=== PATIENT | female | born 1980 | race Caucasian/White ===

== ENCOUNTER 2016-12-28 20:18 | Inpatient (IN) | payer OTHER ==
[~2016-12-28] VITALS: Ht 152.4 cm; Wt 59.0 kg
--- NOTE | 2016-12-28 20:39 | ED PSYCHIATRIC COMPLAINT ---
See Addendum History of Present Illness General Chief Complaint: General Adult Stated Complaint: "IM HERE TO SEE DR BLOOD" BED FOR DETOX OPI/JOSE Source: patient Exam Limitations: poor historian, physical impairment Vital Signs & Intake/Output Vital Signs & Intake/Output Vital Signs Date Time Temp Pulse Resp B/P Pulse O2 O2 Flow FiO2 Ox Delivery Rate 12/29 1611 98.0 65 18 110/64 98 Room Air / 1507 97.9 80 18 108/60 / 1507 97.9 80 18 108/60 97 Room Air 12/29 1350 98.2 76 18 112/64 98 Room Air / 1116 97.0 74 18 99/57 /09 1108 97.0 74 18 99/57 97 Room Air / 0839 96.7 75 18 108/62 / 0837 96.7 75 18 108/62 / 0830 96.7 75 18 108/62 97 Room Air / 0609 97.1 80 20 90/55 96 Room Air / 0600 98.1 81 18 90/50 /09 0400 96.7 77 18 102/59 03/09 0400 96.7 77 18 102/59 96 Room Air / 0157 96.9 76 18 102/67 03/09 0146 96.9 76 18 102/67 97 Room Air / 0145 96.9 76 18 102/67 /08 2330 96.5 77 18 113/53 03/08 2317 96.5 77 17 113/53 96 Room Air / 2059 96.6 101 20 123/68 96 Room Air ED Intake and Output 12/29 0000 12/28 1200 Intake Total 0 Output Total Balance 0 Intake, Oral 0 Patient 130 lb Weight Allergies Coded Allergies: No Known Allergies (12/28/16) Triage Nurses Notes Reviewed? yes Onset: Abrupt Duration: week(s): Timing: recent history HPI: 12/28/16 This is a 36-year-old female who is pending admission to the [facility] for benzodiazepine and opiate detox. She says that she is using 6 bags of heroin a day, and taking -8 mg of Xanax daily. This is been ongoing for months. She also has a problem with alcohol and uses cocaine and crack when available, she also smokes cigarettes. She denies any medical history. No prior history of seizures. The onset of the symptoms were abrupt, the duration has been months, the severity is significant; as her symptoms required her to come to the emergency department for care (BENNIE BLOOD DO) Reconcile Medications Alprazolam 2 MG TABLET 1 TAB PO 4XDAILY ANXIETY (Reported) (MATT MONTGOMERY,CHANNING Cheng) Past History Travel History Traveled to [place] past 21 day No Medical History Any Pertinent Medical History? see below for history Psychiatric: drug dependency Surgical History Surgical History: non-contributory Family History Hx Contributory? No (BENNIE BLOOD DO) Review of Systems Review of Systems Constitutional: Denies: fever. EENTM: Reports: no symptoms. Respiratory: Reports: no symptoms. Cardiovascular: Reports: no symptoms. GI: Reports: no symptoms. Genitourinary: Reports: no symptoms. Musculoskeletal: Reports: no symptoms. Skin: Reports: no symptoms. Neurological/Psychological: Reports: anxiety. Hematologic/Endocrine: Reports: no symptoms. (BENNIE BLOOD DO) Physical Exam Physical Exam General Appearance: anxious, mild distress, sleepy but responds to questions Head: atraumatic, normal appearance Eyes: Bilateral: normal appearance, PERRL, EOMI. Ears, Nose, Throat: normal pharynx, normal ENT inspection Neck: normal inspection, supple, full range of motion Respiratory: normal breath sounds, chest non-tender Cardiovascular: regular rate/rhythm Gastrointestinal: non-tender Extremities: normal range of motion Neurological/Psychiatric: anxious, sleepy Appearance/Memory/Insight: disheveled Behavoir/Eye Contact/Speech: cooperative Thoughts/Hallucinations: no apparent hallucination Skin: intact, normal color, warm/dry SAD PERSONS SAD PERSONS Response Value Excessive Ethanol/Drug Use? yes 1 Single//? yes 1 Social Support? has support 0 Total 2 SAD PERSONS Done? yes, patient not suicidal (BENNIE BLOOD DO) Progress Differential Diagnosis: drug intoxication, drug overdose, drug withdrawal Plan of Care: Orders Procedure Date/time Status Regular Diet 12/30 B Active PHOSPHORUS 12/30 0600 Active MAGNESIUM 12/30 0600 Active CBC WITHOUT DIFFERENTIAL 12/30 0600 Active BASIC ELECTROLYTES PLUS BUN&CR 12/30 599 Active Regular Diet 12/29 D Complete Heart Healthy Diet 12/29 B Complete Pathway - chart 12/29 175 Active House Staff 12/29 1754 Active Patient Data 12/29 1754 Active Code Status 12/29 1754 Active Admit to inpatient 12/29 1750 Active Code Status 12/29 1545 Complete Patient Data 12/29 1429 Active Saline Lock 12/29 1428 Active Misc Message 12/29 1428 Active ED Holding Orders 12/29 1428 Active Activity/Ambulation 12/29 1428 Active Discharge Patient 12/29 1412 Active CASE MANAGEMENT CONSULT 12/[address] in observation 12/29 0045 Active Patient Data 12/29 0045 Active Vital Signs 12/29 0045 Active Code Status 12/29 0045 Complete VTE Mechanical Prophylaxis 12/29 UNK Active Intake & Output 12/28 2200 Active CIWA 12/28 2133 Active URINE DRUG SCREEN FOR ER ONLY 12/28 2108 Complete ETHANOL 12/28 2108 Complete COMPREHENSIVE METABOLIC PANEL 12/28 2108 Complete CBC WITHOUT DIFFERENTIAL 12/28 2108 Complete Current Medications Sig/Eligio Start time Last Medication Dose Stop Time Status Admin Enoxaparin Sodium 40 MG DAILY 12/30 1000 CAN (Lovenox) Enoxaparin Sodium 40 MG DAILY 12/30 1000 UNVr (Lovenox) Nicotine 14 MG DAILY 12/30 1000 CAN (Nicotine Cq) Methadone HCl 30 MG ONCE ONE 12/30 0800 UNVr (Dolophine) 12/30 08 Baclofen 10 MG TID PRN 12/29 183 UNVr (Lioresal 10MG Tablet) Clonidine 0.1 MG TID PRN 12/29 183 UNVr (Catapres) Dicyclomine HCl 20 MG 4 TIMES/DAY PRN 12/29 183 UNVr (Bentyl) Lorazepam 0 Q1P PRN 12/29 183 UNVr (Ativan) Metoclopramide HCl 10 MG Q6P PRN 12/29 183 UNVr (Reglan) Gabapentin 200 MG TID 12/29 181 UNVr (Neurontin) Lorazepam 2 MG Q6 12/29 181 UNVr (Ativan) Acetaminophen 650 MG Q6P PRN 12/29 1545 AC (Tylenol) Laboratory Tests 12/29/16 0205: Urine Opiates Screen > 4000.00 H, Methadone Screen < 40, Barbiturate Screen < 60, Ur Phencyclidine Scrn < 6.00, Amphetamines Screen 109, U Benzodiazepines Scrn > 800 H, Urine Cocaine Screen 283, Urine Cannabis Screen 12.40 12/28/16 2142: Anion Gap 10, Estimated GFR > 60, BUN/Creatinine Ratio 32.5 H, Glucose 107 H, Calcium 9.5, Total Bilirubin 0.6, AST 36, ALT 59 H, Alkaline Phosphatase 55, Total Protein 6.7, Albumin 3.9, Globulin 2.8, Albumin/Globulin Ratio 1.4, CBC w Diff NO MAN DIFF REQ, RBC 4.15 L, MCV 92.7, MCH 31.8 H, RDW 13.1, MPV 8.6, Gran % 75.5 H, Lymphocytes % 19.2 L, Monocytes % 4.6, Eosinophils % 0.4, Basophils % 0.3, Absolute Granulocytes 7.5 H, Absolute Lymphocytes 1.9, Absolute Monocytes 0.5, Absolute Eosinophils 0, Absolute Basophils 0, PUBS MCHC 34.3, Serum Alcohol < 10.0 Initial ED EKG: none (BENNIE BLOOD DO) Hand-Off Endorsed To: CHANNING GUTIERREZ MD Endorsed Time: 0700 Pending: consult, other (sobriety ?needs detox) (TERRA MONTGOMERY,MARCIE Morocho) Comments: Called has been made to multiple different detox facilities however they do not have any beds. Patient will be admitted here to [facility]. (CHANNING GUTIERREZ MD) Departure Departure Condition: Stable Clinical Impression Primary Impression: Opiate dependence Secondary Impressions: Benzodiazepine abuse Departure Forms: Customer Survey General Discharge Information Comments 12/28/16 12:45 AM THE PATIENT WAS SIGNED OUT TO HENNA ELLISON AT 12:40 AM Observation Note Spoke With: BENNIE BLOOD DO Physician Advisor Notified: BENNIE BLOOD DO Place Patient In: ED Observation Rationale for Observation: My rational for observation is as follows [the patient needs observation for neuro checks every 2-4 hours, serial CIWA scores, likely initiation of benzodiazepine a.m. taper protocol, seizure precautions]. (BENNIE BLOOD DO) Departure Disposition: STILL A PATIENT Admission Note Spoke With: SUKHJINDER LATHAM MD Documentation of Exam: Documentation of any treatments & extenuating circumstances including Concerns Regarding Discharge (functional status, medication knowledge or non-compliance, living conditions, etc.) that warrant an admission rather than observation: [ Patient to be admitted for opiate and benzo detox. Patient will need close monitoring. Patient will require a methadone taper and a benzo taper. Upon discharge the patient has a bed waiting for her at [facility].] (MATT MONTGOMERY,CHANNING Cheng) Critical Care Note Critical Care Note Critical Care Time: 30-74 min (BENNIE BLOOD DO) ED Attending Observation Initial Observation Note: I have seen and personally examined VIC SANTO on 12/29/16 at 0040. I agree with the current emergency department documentation. The disposition (admission or discharge) is uncertain at this time, she needs a period of observation for the following reason(s): [The patient is on 8 mg of benzodiazepines daily, she is currently sleepy but responsive, she last used earlier today. She will need a period of observation to determine whether or not she needs to be admitted or discharged based upon her CIWA scores, observation for seizure, observation for evidence of delirium tremens, observation for alcohol hallucinosis.] The ED Nurse caring for this patient has been personally informed as to what the patient is being observed for. CIWA SCORES HAVE BEEN ORDERED (BENNIE BLOOD DO) Initial Observation Note: I have seen and personally examined VIC SANTO on 12/29/16 at 1413. I agree with the current emergency department documentation. The disposition (admission or discharge) is uncertain at this time, she needs a period of observation for the following reason(s): The ED Nurse caring for this patient has been personally informed as to what the patient is being observed for. Observation Re-Evaluation: I have reevaluated VIC SANTO on 12/29/16 at 0730. The physical findings that support the continued need to observe this patient include [patient feels very anxious, myalgias, nauseous. Patient given clonidine, Vistaril, Reglan and Motrin. Patient given methadone for her opiate dependency. Awaiting state approval for admission. On exam she is tremulous but her lungs are clear to auscultation. Cardiac exam is regular rate and rhythm with no murmur sharp.]. Observation Discharge: I have reevaluated VIC SANTO on 12/29/16 at 1413. The patient is: (): Stable for discharge ([X]): To be admitted to Nursing Floor (): To be placed in Observation on Nursing Floor (): For transfer to other facility The patient was being observed for [benzo and opiate withdrawal] As a result of that observation, I have determined [admitted for benzo and opiate withdrawal]. (MATT MONTGOMERY,CHANNING Cheng)
[2016-12-28 21:54] LABS: ABSOLUTE BASOPHIL COUNT 0 /CUMM (0.0-0.2); ABSOLUTE EOSINOPHIL COUNT 0 /CUMM (0.0-0.7); ABSOLUTE GRANULOCYTE CT 7.5 /CUMM (1.4-6.5); ABSOLUTE LYMPH COUNT 1.9 /CUMM (1.2-3.4); ABSOLUTE MONOCYTE COUNT 0.5 /CUMM (0.10-0.60); BASOPHIL % 0.3 % (0.0-2.0); EOSINOPHIL % 0.4 % (0-5); GRANULOCYTE % 75.5 % (42.2-75.2); HEMATOCRIT 38.4 % (37-47); MEAN CORPUSCULAR HGB 31.8 PG (27.0-31.0); MEAN CORPUSCULAR HGB CONC 34.3 G/DL (33.0-37.0); MEAN CORPUSCULAR VOLUME 92.7 FL (81.0-99.0); MEAN PLATELET VOLUME 8.6 FL (7.4-10.4); PLATELET COUNT 233 /CUMM (130-400); RBC DISTRIBUTION WIDTH 13.1 % (11.5-14.5); RED BLOOD CELL CT 4.15 /CUMM (4.20-5.40)
[2016-12-28 23:30] VITALS: BP 113/53
[2016-12-29] VITALS (9 sets, daily range): BP systolic 90–126; BP diastolic 50–84
--- NOTE | 2016-12-29 15:08 | History & Physical ---
JORGITO KHAN 12/29/16 1508: General Information and HPI MD Statement: I have seen and personally examined VIC SANTO and documented this H&P. The patient is a 36 year old F who presented with a patient stated chief complaint of [in for detox]. Source of Information: patient, old records Exam Limitations: Patient uncooperative History of Present Illness: Ms Santo is a 36-year-old lady with a PMH of IV heroine, daily benzodiazepine abuse, 1 PPD tobacco use was brought in to [place] for benzodiazepine and opiate detox. Information obtained indicates that family members had established a detox program at [facility] but due to unavailability of bed space she was brought to [place]. She currently complains of feeling frustrated about the whole process and endorses generalized body aches with intermittent subjective fevers and chills. Patient is uncooperative with providing additional information at this time. She denies any chest pain, shortness of breath, abdominal pain at this time. Allergies/Medications Allergies: Coded Allergies: No Known Allergies (12/28/16) Home Med list Alprazolam 2 MG TABLET 1 TAB PO 4XDAILY ANXIETY (Reported) Past History Travel History Traveled to [facility] past 21 day No Medical History Neurological: NONE EENT: NONE Cardiovascular: NONE Respiratory: NONE Gastrointestinal: NONE Hepatic: NONE Renal: NONE Musculoskeletal: NONE Psychiatric: drug dependency Endocrine: NONE Blood Disorders: NONE Cancer(s): NONE Surgical History Surgical History: non-contributory Past Family/Social History Psychosocial History Smoking Status: Unknown If Ever Smoked Review of Systems Review of Systems Constitutional: Reports: see HPI. EENTM: Reports: see HPI. Cardiovascular: Reports: no symptoms. Respiratory: Reports: no symptoms. GI: Reports: no symptoms. Musculoskeletal: Reports: see HPI. Hematologic/Endocrine: Reports: see HPI. Exam & Diagnostic Data Last 24 Hrs of Vital Signs/I&O Vital Signs Date Time Temp Pulse Resp B/P Pulse O2 O2 Flow FiO2 Ox Delivery Rate 12/29 1507 97.9 80 18 108/60 12/29 1507 97.9 80 18 108/60 97 Room Air 12/29 1350 98.2 76 18 112/64 98 Room Air 12/29 1116 97.0 74 18 99/57 12/29 1108 97.0 74 18 99/57 97 Room Air 12/29 0839 96.7 75 18 108/62 / 0837 96.7 75 18 108/62 / 0830 96.7 75 18 108/62 97 Room Air 12/29 0609 97.1 80 20 90/55 96 Room Air 12/29 0600 98.1 81 18 90/50 / 0400 96.7 77 18 102/59 / 0400 96.7 77 18 102/59 96 Room Air 12/29 0157 96.9 76 18 102/67 /09 0146 96.9 76 18 102/67 97 Room Air 12/29 0145 96.9 76 18 102/67 /08 2330 96.5 77 18 113/53 /08 2317 96.5 77 17 113/53 96 Room Air 12/28 2059 96.6 101 20 123/68 96 Room Air Intake & Output 12/29 1600 12/29 0800 12/29 0000 Intake Total 0 Output Total Balance 0 Intake, Oral 0 Patient 130 lb Weight Physical Exam General Appearance Alert, patient appears agitated at this time. Patient not very cooperative with answering questions HEENT EOMI, Mucous Membr. moist/pink Cardiovascular Regular Rate, Normal S1, Normal S2 Lungs Clear to Auscultation, Normal Air Movement Abdomen Normal Bowel Sounds, Soft Neurological Normal Speech, no evidence of focal neurologic deficits at this time Extremities No Edema Last 24 Hrs of Labs/Jimmy: Laboratory Tests 12/29/16 0205: Urine Opiates Screen > 4000.00 H, Methadone Screen < 40, Barbiturate Screen < 60, Ur Phencyclidine Scrn < 6.00, Amphetamines Screen 109, U Benzodiazepines Scrn > 800 H, Urine Cocaine Screen 283, Urine Cannabis Screen 12.40 12/28/16 2142: Anion Gap 10, Estimated GFR > 60, BUN/Creatinine Ratio 32.5 H, Glucose 107 H, Calcium 9.5, Total Bilirubin 0.6, AST 36, ALT 59 H, Alkaline Phosphatase 55, Total Protein 6.7, Albumin 3.9, Globulin 2.8, Albumin/Globulin Ratio 1.4, CBC w Diff NO MAN DIFF REQ, RBC 4.15 L, MCV 92.7, MCH 31.8 H, RDW 13.1, MPV 8.6, Gran % 75.5 H, Lymphocytes % 19.2 L, Monocytes % 4.6, Eosinophils % 0.4, Basophils % 0.3, Absolute Granulocytes 7.5 H, Absolute Lymphocytes 1.9, Absolute Monocytes 0.5, Absolute Eosinophils 0, Absolute Basophils 0, PUBS MCHC 34.3, Serum Alcohol < 10.0 Assessment/Plan Assessment: 36-year-old lady with a PMH of IV heroine, daily benzodiazepine abuse, 1 PPD tobacco use was brought in to [place] for benzodiazepine and opiate detox in the setting of unavailable bed space at [facility]. VS on admission: BP 128/68, HR 101, RR 20, SPO2 96% on RA, T 96.6 Pertinent labs: WBC 10.0, H&H 13.2/30.4, sodium 140, potassium 4.1, chloride 104 carb 26, BUN/CR 13/0.4 Urine tox: Opiates > 4000, benzodiazepine >800 In the ER patient received 2 doses of clonidine 0.1 mg PO, methadone 40 mg 1, Atarax 25 mg 1 and regular Problem list: 1. Heroine withdrawal 2. Benzodiazepine dependence 3. Alcohol dependence 4. Tobacco dependence Plan: * Admit to general medicine floor * Heroine dependence: Rapid taper with methadone 40/30/20/10 mg each day * Patient reports baseline of 8 mg Xanax daily. Converted comes to approximately 16 mg of IV Ativan per day. We'll start the patient on scheduled Ativan 2 mg PO Q6 along with Ativan per CIWA * Withdrawal symptomatic control: Gabapentin 200 mg TID scheduled, clonidine 0.1 mg PO BID PRN for suppressing cravings, baclofen 10 mg TID PRN for muscle spasms , Bentyl PRN for GI symptoms, Zofran/Reglan for nausea control * Regular diet * DVT prophylaxis: Lovenox 40 mg subcutaneous daily * Code: Full code As Ranked By This Provider Problem List: 1. Benzodiazepine abuse 2. Opiate dependence Core Measures/Miscellaneous Acute Coronary Syndrome ACS Diagnosis: No Cerebrovascular Accident CVA/TIA Diagnosis: No Congestive Heart Failure CHF Diagnosis: No Venous Thromboembolism VTE Risk Factors: Acute medical illness [facility] prophylaxis d/t: No contraindications No VTE Pharm Prophylaxis d/t: No contraindications VTE Diagnosis: No VTE Type: NONE VTE Confirmed by (Test): NONE Severe Sepsis Severe Sepsis Present: No Septic Shock Septic Shock Present: No Miscellaneous Documentation Attending Case Discussed With: SUKHJINDER LATHAM MD Primary Care Physician: PATIENT HAS NO PRIMARY CARE DR Patient sees these Specialists None Level of Patient Care: General Medicine Resident Review Statement Resident Statement: examined this patient, discussed with creative services intern, agreed with creative services intern, reviewed EMR data (avail) SUKHJINDER LATHAM MD 12/29/16 3772: Attending MD Review Statement Attending Statement Attending Statement: examined this patient, discuss w/resident/PA/COMMUNITY OUTREACH SPECIALIST, agreed w/resident/PA/COMMUNITY OUTREACH SPECIALIST, reviewed EMR data (avail), amended to note Attending Assessment/Plan: The patient is a 36 yo female with h/o opioid addiction (heroin- 8 bags/day), benzodiazepine abuse (8 mg daily), and h/o polysubstance abuse (cocaine/crack/ EtOH/cigarettes) who in the [place] ED yesterday referred to here for medical detox prior to admission to long-term substance abuse facility ([facility]). In the ED she was begun on rapid opioid detox using Methadone (also clonidine, etc. ), however received no presented. The patient when questioned endorsed that she was taking Xanax 8 mg daily for a number of months. At the time of my exam she did c/o some chills and myalgias/body aches. Was angry due to the length of time she was in the ED. She denied any chest pain, dyspnea, etc. She was reluctant to share other information. Physical Exam: VS: T 97.9, P 80, R 18, BP 108/60, PO 97% RA HEENT: eyes- PERRLA, EOMI, non-icteric sclera loly- dry mucosa w/o lesions Neck: No thyromegaly or adenopathy Chest: clear Cor: RRR, nl S1, S2 w/o murm Abd: BS+, soft, NT, - HSM Ext: no edema, tenderness Labs/Tests- as above Impression/Plan: #Opioid Dependence/Withdrawal - as above has 8 bag/day heroin habit at present. Needs medical detox prior to [facility] admission. Received 40 mg Methadone in ED today. Plan: Admit to general medical floor. Will continue rapid Methadone detox/taper as already initiated. Continue Clonidine 0.1 mg tid prn. Bentyl/Ibuprofen/Reglan/Atarax, etc. as per protocol. #Benzodiazepine Dependence/Withdrawal- concern that she has been taking 8 mg daily and is at high risk for seizures. Needs rapid detox for [facility] admission. 8 mg of Xanax is equivalent to approximately 16 mg of Ativan. Will need to have gradual taper. Plan: Will begin Ativan 2 mg po q6h and give 2mg prn doses. Should be using CIWA for benzos (not part of protocol here), but will substitute EtoH CIWA. Will start Gabapentin 200 mg tid at present (may increase to 300 mg tid if tolerated) for seizure prophylaxis/detox. #H/O Polysubstance Abuse- patient has used crack, cocaine, EtOH, etc. She denies recent use and tox screen negative. Plan: Will observe.
[2016-12-29] MEDS ORDERED: ALPRAZOLAM2 M2 PO (17:39)
--- NOTE | 2016-12-29 21:53 | Admission Certification ---
Admission Certification Certification Statement - As attending physician, I certify that at the time of - admission, based on clinical presentation, severity of - symptoms, need for further diagnostic testing and - therapeutic interventions, and risk of adverse outcomes - without in-hospital treatment, in my clinical assessment, - this patient requires an acute hospital stay for a minimum - of two nights or longer. I have also considered psychsocial - factors such as support system, advanced age, financial - issues, cognitive issues, and failed out-patient treatments, - past re-admission history, safety of patient, and lack of - compliance as applicable. Specific rationale supporting this admission is: Patient with h/o opioid, benzodiazepine, and polysubstance abuse for detox. Concern regarding potential seizure related to benzo withdrawal. Needs admission for close monitoring for seizures, Ativan, etc.
[2016-12-30] VITALS (12 sets, daily range): BP systolic 90–122; BP diastolic 58–76
--- NOTE | 2016-12-30 07:01 | PN- Housestaff ---
JORGITO KHAN 12/30/16 0701: Subjective Follow-up For: Heroine withdrawal Benzodiazepine withdrawal Complaints: Difficulty falling asleep and restlessness Subjective: Interval history: This morning she states that she had a hard time staying asleep due to generalized anxiety, body aches, restlessness and intermittent feelings of warmth/cold. She denies any headache, blurry vision, visual/auditory hallucinations, chest pain, palpitations or nausea or diarrhea. Review of Systems Constitutional: Reports: see HPI. EENTM: Reports: no symptoms. Cardiovascular: Reports: no symptoms. Respiratory: Reports: no symptoms. Gastrointestinal: Reports: no symptoms. Genitourinary: Reports: no symptoms. Musculoskeletal: Reports: see HPI. Objective Last 24 Hrs of Vital Signs/I&O Vital Signs Date Time Temp Pulse Resp B/P Pulse O2 O2 Flow FiO2 Ox Delivery Rate 12/30 1258 86 98/58 12/30 1000 97.8 67 20 104/76 12/30 0800 97.8 67 20 104/76 12/30 0645 97.8 67 20 104/76 97 Room Air 12/30 0600 76 92/58 10 0133 102/64 12/30 0127 97.8 76 18 90/58 96 Room Air 12/30 0122 97.6 76 18 102/64 12/29 2201 98.9 74 20 124/84 98 Room Air 12/29 2028 96.8 81 18 126/70 96 Room Air 12/29 1851 97.4 80 18 110/70 98 Room Air 12/29 1829 98.0 65 18 110/64 12/29 1611 98.0 65 18 110/64 98 Room Air 12/29 1507 97.9 80 18 108/60 / 1507 97.9 80 18 108/60 97 Room Air 12/29 1350 98.2 76 18 112/64 98 Room Air Intake & Output 12/30 1600 12/30 0800 12/30 0000 Intake Total 600 Output Total Balance 600 Intake, Oral 600 Patient 130 lb Weight Physical Exam General Appearance: Alert, Cooperative, No Acute Distress HEENT: EOMI, Mucous Membr. moist/pink Cardiovascular: Regular Rate, Normal S1, Normal S2 Lungs: Clear to Auscultation, Normal Air Movement Abdomen: Normal Bowel Sounds, Soft, No Tenderness Neurological: Normal Speech, Normal Tone Extremities: No Edema, Normal Pulses Vascular: Pulses Symmetrical Current Medications: Current Medications Sig/Eligio Start time Last Medication Dose Route Stop Time Status Admin Acetaminophen 650 MG Q6P PRN 12/29 1545 AC PO Baclofen 10 MG TID PRN 12/29 1830 AC PO Clonidine 0.1 MG TID PRN 12/29 1830 AC 12/30 PO 1258 Clonidine 0 .STK-MED ONE 12/29 1825 DC PO Clonidine 0.1 MG ONCE ONE 12/29 1615 DC 12/29 PO 12/29 1616 1829 Dicyclomine HCl 20 MG 4 TIMES/DAY PRN 12/29 1830 AC PO Enoxaparin Sodium 40 MG DAILY 12/30 1000 CAN SC Enoxaparin Sodium 40 MG DAILY 12/30 1000 AC 12/30 SC 0935 Gabapentin 300 MG TID 12/30 1000 AC 12/30 PO 0935 Gabapentin 200 MG TID 12/29 1815 DC 12/29 PO 2339 Hydroxyzine HCl 0 .STK-MED ONE 12/29 1750 DC PO Hydroxyzine HCl 25 MG ONCE ONE 12/29 1615 DC 12/29 PO 12/29 1616 1829 Lorazepam 0 .STK-MED ONE 12/29 1839 DC PO Lorazepam 0 Q1P PRN 12/29 1830 AC 12/30 IV 1023 Lorazepam 2 MG Q6 12/29 1815 AC 12/30 PO 1224 Methadone HCl 30 MG ONCE ONE 12/30 0800 DC 12/30 PO 12/30 0801 0934 Metoclopramide HCl 10 MG Q6P PRN 12/29 1830 AC IV Nicotine 14 MG DAILY 12/30 1000 CAN TOP Oxycodone/ 1 TAB Q6P PRN 12/29 1545 DC Acetaminophen PO Oxycodone/ 2 TAB Q6P PRN 12/29 1545 DC Acetaminophen PO Last 24 Hrs of Lab/Jimmy Results Last 24 Hrs of Labs/Mics: Laboratory Tests 12/30/16 0856: Anion Gap 8, Estimated GFR > 60, BUN/Creatinine Ratio 27.1 H, Phosphorus 3.2, Magnesium 1.7, CBC w Diff NO MAN DIFF REQ, RBC 4.07 L, MCV 93.1, MCH 31.1 H, RDW 13.6, MPV 8.6, Gran % 49.5, Lymphocytes % 38.7, Monocytes % 9.1, Eosinophils % 2.0, Basophils % 0.7, Absolute Granulocytes 3.7, Absolute Lymphocytes 2.9, Absolute Monocytes 0.7 H, Absolute Eosinophils 0.1, Absolute Basophils 0, PUBS MCHC 33.4 Assessment/Plan Assessment: 36-year-old lady with a PMH of IV heroine, daily benzodiazepine abuse, 1 PPD tobacco use was referred to here for medical detox prior to admission to manager intermediate substance abuse facility ([facility]). Problem list: 1. Heroine withdrawal 2. Benzodiazepine dependence 3. Alcohol dependence 4. Tobacco dependence Plan: 1. Heroine withdrawal * We started the patient on a rapid taper of methadone: 40/30/20/10 mg * Clonidine 0.1 mg TID PRN for cravings depression * Baclofen 10 mg TID for muscle cramps * Bentyl 20 mg PO QID PRN for abdominal cramps 2. Benzodiazepine dependence * Patient reports daily use of chewing 4 mg and 8 mg Xanax daily * Relatively controlled on Ativan 2 mg PO Q6 with PRN 1mg IV (2 doses over the past 24hrs) * We'll obtain psychiatric input with regards to Ativan taper * Increased gabapentin from 200mg TID up to 300 mg TID 3. Alcohol dependence * Stable at this time. Currently on CIWA 4. Tobacco dependence * Continue nicotine patch 14 mg daily Problem List: 1. Benzodiazepine abuse 2. Opiate dependence 3. Tobacco dependence Pain Ratin Pain Location: Genralized body Pain Goal: Pain 4 or less Pain Plan: ATivan and methadone taper Tomorrow's Labs & Rationales: None required DVT/Prophylaxis: pharmacological Consulting Request: Consulting Specialty: Psychiatry SUKHJINDER LATHAM MD 12/30/16 1801: Attending MD Review Statement Attending Statement Attending MD Statement: examined this patient, discuss w/resident/PA/ECHOCARDIOGRAPHY TECH, agreed w/resident/PA/ECHOCARDIOGRAPHY TECH, reviewed EMR data (avail), discussed with nursing, discussed with case mgmt, amended to note Attending Assessment/Plan: The patient was seen and discussed with house staff and psychiatry. Will continue with benzo and opioid detox. Psych input appreciated. Psychiatry says that patient may be transferred to facility in [place] ([facility]) and the safety representative from there is discussing with patient and her mother. If she elects to go there would discharge from here and patient would be flown to [place] to complete medical detox and manager intermediate rehab. Patient unclear at present if she wishes this or [facility]. [facility] will not take her on benzodiazepine.
--- NOTE | 2016-12-30 07:25 | PN- Housestaff ---
Assessment/Plan Assessment: 36-year-old lady with a PMH of IV heroine, daily benzodiazepine abuse, 1 PPD tobacco use was referred to here for medical detox prior to admission to supervisor intermediates substance abuse facility ([facility]). Problem list: 1. Heroine withdrawal 2. Benzodiazepine dependence 3. Alcohol dependence 4. Tobacco dependence Plan: 1. Heroine withdrawal * We started the patient on a rapid taper of methadone: 40/30/20/10 mg * Clonidine 0.1 mg TID PRN for cravings depression * Baclofen 10 mg TID for muscle cramps * Bentyl 20 mg PO QID PRN for abdominal cramps 2. Benzodiazepine dependence * Patient reports daily use of chewing 4 mg and 8 mg Xanax daily * Relatively controlled on Ativan 2 mg PO Q6 with PRN 1mg IV (2 doses over the past 24hrs) * We'll obtain psychiatric input with regards to Ativan taper * Increased gabapentin from 200mg TID up to 300 mg TID 3. Alcohol dependence * Stable at this time. Currently on CIWA 4. Tobacco dependence * Continue nicotine patch 14 mg daily
[2016-12-30 10:12] LABS: ABSOLUTE BASOPHIL COUNT 0 /CUMM (0.0-0.2); ABSOLUTE EOSINOPHIL COUNT 0.1 /CUMM (0.0-0.7); ABSOLUTE GRANULOCYTE CT 3.7 /CUMM (1.4-6.5); ABSOLUTE LYMPH COUNT 2.9 /CUMM (1.2-3.4); ABSOLUTE MONOCYTE COUNT 0.7 /CUMM (0.10-0.60); BASOPHIL % 0.7 % (0.0-2.0); GRANULOCYTE % 49.5 % (42.2-75.2); HEMATOCRIT 37.9 % (37-47); MEAN CORPUSCULAR HGB 31.1 PG (27.0-31.0); MEAN CORPUSCULAR HGB CONC 33.4 G/DL (33.0-37.0); MEAN CORPUSCULAR VOLUME 93.1 FL (81.0-99.0); MEAN PLATELET VOLUME 8.6 FL (7.4-10.4); PLATELET COUNT 204 /CUMM (130-400); RBC DISTRIBUTION WIDTH 13.6 % (11.5-14.5); RED BLOOD CELL CT 4.07 /CUMM (4.20-5.40); WHITE BLOOD CELL COUNT 7.4 /CUMM (4.8-10.8)
--- NOTE | 2016-12-30 18:18 | Cons- Psychiatry ---
Psychiatric Consult Date of Consult: 12/30/16 Reason for Consult: "xanax and heroine detox" History of Present Illness: 36 F to the ED on 12/28/16 at 2101 with a CC of requesting opiate and benzo detox. She had presented to [facility] rehab in [place], [place] previously, but they are an abstinence-based rehab facility, with no ability to manage substance withdrawal. She was sent to to begin detox. The patient lives in [place], [place] with her parents and her two children, both girls, 8 and 16. 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 She has alprazolam 8 mg daily prescribed by her PCP for the last 6 years for "social anxiety", and per the medical team, purchases more on the street. She has used cocaine recently, smokes cannabis, sometimes alcohol. She has never been diagnosed or treated for a psychiatric condition by psychiatry. She reports that melatonin did not work for insomnia, buthadhad some success with trazodone 50 mg qHS. The patient reports that she had a seizure of unknown etiology when she was 12 years old. She had tried to stop her benzos for 3 days recently, and when she asked her mother to bring them to her, she immediately took 3 tabs of 2 mg alprazolam. Allergies: Coded Allergies: No Known Allergies (12/28/16) Past History Past Medical History Neurological: NONE EENT: NONE Cardiovascular: NONE Respiratory: NONE Gastrointestinal: NONE Hepatic: NONE Renal: NONE Musculoskeletal: NONE Psychiatric: drug dependency Endocrine: NONE Blood Disorders: NONE Cancer(s): NONE Past Surgical History Surgical History: non-contributory Assessment/Plan Mental Status Mental Status Exam: The patient is alert, watching a video on her cell phone. She is oreinted to her name, the reason she is here, but does not know the day or place. She describes her depression symptoms as 0/10; anxiety as 6/10; 10 is the worst. She denies hopelessness, helplessness and worthlessness. She denies suicidal or homicidal ideation. Her thought processes are linear and logical. She selectively engages in conversation, and doesnot respond to all questions, instead staring at the bed or the wall, "I don't like to look people in the eye. " Insight and judgment are intact. Lab Results: Laboratory Tests 12/30 0856 Chemistry Sodium (137 - 145 mmol/L) 136 L Potassium (3.5 - 5.1 mmol/L) 4.4 Chloride (98 - 107 mmol/L) 97 L Carbon Dioxide (22 - 30 mmol/L) 32 H Anion Gap (5 - 16) 8 BUN (7 - 17 mg/dL) 19 H Creatinine (0.5 - 1.0 mg/dL) 0.7 Estimated GFR (>60 ml/min) > 60 BUN/Creatinine Ratio (7 - 25 %) 27.1 H Phosphorus (2.5 - 4.5 mg/dL) 3.2 Magnesium (1.6 - 2.3 mg/dL) 1.7 Hematology CBC w Diff NO MAN DIFF REQ WBC (4.8 - 10.8 /CUMM) 7.4 RBC (4.20 - 5.40 /CUMM) 4.07 L Hgb (12.0 - 16.0 G/DL) 12.6 Hct (37 - 47 %) 37.9 MCV (81.0 - 99.0 FL) 93.1 MCH (27.0 - 31.0 PG) 31.1 H RDW (11.5 - 14.5 %) 13.6 Plt Count (130 - 400 /CUMM) 204 MPV (7.4 - 10.4 FL) 8.6 Gran % (42.2 - 75.2 %) 49.5 Lymphocytes % (20.5 - 51.1 %) 38.7 Monocytes % (1.7 - 9.3 %) 9.1 Eosinophils % (0 - 5 %) 2.0 Basophils % (0.0 - 2.0 %) 0.7 Absolute Granulocytes (1.4 - 6.5 /CUMM) 3.7 Absolute Lymphocytes (1.2 - 3.4 /CUMM) 2.9 Absolute Monocytes (0.10 - 0.60 /CUMM) 0.7 H Absolute Eosinophils (0.0 - 0.7 /CUMM) 0.1 Absolute Basophils (0.0 - 0.2 /CUMM) 0 PUBS MCHC (33.0 - 37.0 G/DL) 33.4 Diffential Diagnosis: Opiate dependence Benzodiazepine dependence Substance-induced mood disorder, currently anxious Personality disorder NOS Impression: The patient reports that her goal is "to get clean." Since [facility] cannot accept her as a patient while she is on benzodiazepines, and it will likely take some time to taper her off her alprazolam, a prudent alternate for disposition maybe to connect her with a rehab facility which can also perform benzo and opiate detox, such as [facility] in [place]. With the patient's written permission, I have contacted their local maintenance representative, Garcia Ibarra, . Mr. Ibarra has talked briefly with the patient by her cell phone, . The patient, despite initial interest, has not fully engaged. She states that she gave his number to her mother. When I returned to discuss the matter with the patient, she stated that she though that she would be quickly tapered off benzos in a [place] hospital, instead of [place]. The mother's name is Cynthia Morse, and can be reached at [phone]. We do not have a standard benzo taper protocol at , but the hospital that [facility] uses, provides for 10 days. After detox in the [facility], she would be transferred to the rehab facility for perhaps 28 days, after which she could transfer to [facility]. [facility] arranges everything. The patient would need to be transported to an airport with direct service to [place], and [facility] will meet her at the baggage claim, after which she would be transported to the appropriate facility. Alternatively, we can provide a benzo detox taper over approximately 5 days, after which she can apply to [facility] rehab again. The parents have indicated that they are willing to pay for this, as [facility] does not accept the patient 's [employer] insurance. It ay be possible for the patient to apply for a scholarship to [facility]. I have spoken to Dr. Arnav Villa this afternoon about the [facility] option, and he is supportive. The patient needs to make a decision soon. Mr. Ibarra can arrange for her to be admitted in [place] as soon as 12/31/16. Provisional Treatment Plan: 1. Continue methadone 4 day taper protocol, which must be finished before the patient is discharged. a. Methadone 20 mg PO 2X/day for 2 doses, then b. Methadone 15 mg PO 2X/day for 2 doses, then c. Methadone 10 mg PO 2X/day for 2 doses, then d. Methadone 5 mg PO 2X/day for 2 doses, then stop e. Alternatively, the above daily total doses can be given once inthe morning. 2. Use the [facility] Detox order set for benzo detox, which provides a 5 day taper, using the CIWA scale. Do not stop the lorazepam abruptly, unless the patient leaves AMA. See below. 3. Use the Opiate Detox Protocol (Draft) for symptomatic relief of withdrawal. A copy was provided to housestaff. Clonidine should be tapered if the patient receives more than 3-4 days of regular doses. 4. The patient has capacity to understand the treatment options, and verbalizes understanding. She may leave AMA. If she elects this option, please provide teaching and document her verbalization that she understands the risks of leaving AMA, including relapse on opiates or benzos, the possiblity of seizure and . 5. Encourage the patient to make a timely decision about whether to accept the bed offer at [facility] in [place]. If she elects this option, after the patients last scheduled dose of lorazepam in the hospital, you may wish to provide one more dose given to her parent. This dose should be given to the patient by the parent at the airport; the parent should observe the swallowing of the med. Instruct the patient that she may not drink while taking this medication. The last dose of methadone given on the morning of departure will last until the next day. 6. Please call on-call psychiatry through the Crisis office if you have any questions. Thank-you for asking us to participate in Jhoana's care. If she is still here on Monday, we will revisit. Justino Cardozo APRN, Pager [phone].
[2016-12-31 07:31] VITALS: BP 102/65
--- NOTE | 2016-12-31 08:15 | PN- Housestaff ---
See Addendum DANITZA MONTGOMERY,[facility] 12/31/16 0815: Subjective Follow-up For: Heroine withdrawal Benzodiazepine withdrawal Subjective: Patient was seen and examined this morning, she reported feeling shaky and reported bilateral "leg pain because she is detoxing" she also reported shortness of breath on exertion. Vital signs are stable, no overnight events reported by the nurse. Review of Systems Constitutional: Reports: see HPI. Objective Last 24 Hrs of Vital Signs/I&O Vital Signs Date Time Temp Pulse Resp B/P Pulse O2 O2 Flow FiO2 Ox Delivery Rate 12/31 0731 96.9 68 18 102/65 99 Room Air 12/30 2255 98.2 78 20 122/68 99 Room Air 12/30 1804 98.3 73 20 106/66 98 Room Air 12/30 1510 97.9 78 20 114/60 96 Room Air 12/30 1400 97.9 78 18 114/60 12/30 1258 86 98/58 12/30 1200 97.8 67 20 104/76 12/30 1100 97.8 76 20 104/76 12/30 1000 97.8 67 20 104/76 Intake & Output 12/31 1600 12/31 0800 12/31 0000 Intake Total 420 720 Output Total Balance 420 720 Intake, Oral 420 720 Physical Exam General Appearance: Alert, Oriented X3, Cooperative, No Acute Distress Skin: No Rashes, No Breakdown, No Significant Lesion HEENT: Atraumatic, PERRLA, EOMI, Mucous Membr. moist/pink Cardiovascular: Regular Rate, Normal S1, Normal S2, No Murmurs Lungs: Clear to Auscultation, Normal Air Movement Abdomen: Normal Bowel Sounds, Soft, No Tenderness Neurological: Normal Gait, Normal Speech, Strength at 5/5 X4 Ext, Normal Tone, Sensation Intact, Cranial Nerves 3-12 NL, Reflexes 2+, fine tremors Extremities: No Clubbing, No Cyanosis, No Edema, Normal Pulses Assessment/Plan Assessment: 36-year-old lady with a PMH of IV heroine, daily benzodiazepine abuse, 1 PPD tobacco use was referred to here for medical detox prior to admission to term[facility] control serv[facility] substance abuse facility ([facility] Problem list: 1. Heroine withdrawal 2. Benzodiazepine dependence 3. Alcohol dependence 4. Tobacco dependence Plan: 1. Heroine withdrawal * We started the patient on a rapid taper of methadone: 40/30/20/10 mg * Clonidine 0.1 mg TID PRN for cravings depression * Baclofen 10 mg TID for muscle cramps * Bentyl 20 mg PO QID PRN for abdominal cramps 2. Benzodiazepine dependence * Patient reports daily use of chewing 4 mg and 8 mg Xanax daily * Relatively controlled on Ativan 2 mg PO Q6 with PRN 1mg IV (2 doses over the past 24hrs) * Follow CIWA score, Do not stop the lorazepam abruptly, unless the patient leaves AMA. * Continue gabapentin from 200mg TID up to 300 mg TID 3. Alcohol dependence * Stable at this time. Currently on CIWA 4. Tobacco dependence * Continue nicotine patch 14 mg daily Per psychiatry: #The patient has capacity to understand the treatment options, and verbalizes understanding. She may leave AMA. If she elects this option, please provide teaching and document her verbalization that she understands the risks of leaving AMA, including relapse on opiates or benzos, the possiblity of seizure and . #Please call on-call psychiatry through the Crisis office in case of any question Problem List: 1. Opiate dependence 2. Benzodiazepine abuse 3. Tobacco dependence Pain Ratin Pain Location: Bilateral leg pain Pain Goal: Pain 4 or less Pain Plan: See medication Tomorrow's Labs & Rationales: None Consulting Request: Consulting Specialty: Psychiatry SUSANNAH WAITE 12/31/16 0459: Attending Review Statement Attending Statement Attending MD Statement: discuss w/resident/PA/BASEBALL HAND SEWER, agreed w/resident/PA/BASEBALL HAND SEWER, reviewed EMR data (avail), discussed with nursing Attending Assessment/Plan: Pt seen at bedside. Pt does not want to talk at present but says she feels better after ativan dose. will check acute hepatitis panel on her.
[2016-12-31 14:06] VITALS: BP 120/70
[2016-12-31 22:19] VITALS: BP 102/58
[2017-01-01 06:41] VITALS: BP 94/60
--- NOTE | 2017-01-01 08:15 | PN- Housestaff ---
Subjective Follow-up For: Heroine withdrawal Benzodiazepine withdrawal Subjective: The patient was seen and examined this morning, no overnight events were reported by the nurse or the patient. The nurse reported that the patient was anexious this morning and scored CIWA 10 becuease of that, she was given the PRN ativan, felt better after that. The patient denied abdominal pain, N/V, SOB, palpitation. Vital signs are stable. Review of Systems Constitutional: Reports: see HPI. Objective Last 24 Hrs of Vital Signs/I&O Vital Signs Date Time Temp Pulse Resp B/P Pulse O2 O2 Flow FiO2 Ox Delivery Rate 01/01 0641 98.6 65 20 94/60 98 12/31 2219 98.6 71 18 102/58 98 12/31 1406 97.8 80 20 120/70 98 Room Air Intake & Output 01/01 1600 01/01 0800 01/01 0000 Intake Total 950 Output Total Balance 950 Intake, Oral 950 Physical Exam General Appearance: Alert, Oriented X3, Cooperative, No Acute Distress Skin: No Rashes, No Breakdown, No Significant Lesion HEENT: Atraumatic, PERRLA, EOMI, Mucous Membr. moist/pink Neck: Supple Cardiovascular: Regular Rate, Normal S1, Normal S2, No Murmurs Lungs: Clear to Auscultation, Normal Air Movement Abdomen: Normal Bowel Sounds, Soft, No Tenderness Neurological: Normal Gait, Normal Speech, Strength at 5/5 X4 Ext, Normal Tone, Sensation Intact, Cranial Nerves 3-12 NL, Reflexes 2+ Extremities: No Clubbing, No Cyanosis, No Edema, Normal Pulses Assessment/Plan Assessment: 36-year-old lady with a PMH of IV heroine, daily benzodiazepine abuse, 1 PPD tobacco use was referred to here for medical detox prior to admission to custodial substance abuse facility ([facility]). Problem list: 1. Heroine withdrawal 2. Benzodiazepine dependence 3. Alcohol dependence 4. Tobacco dependence Plan: 1. Heroine withdrawal * We started the patient on a rapid taper of methadone: 40/30/20/10 mg * Clonidine 0.1 mg TID PRN for cravings depression * Baclofen 10 mg TID for muscle cramps * Bentyl 20 mg PO QID PRN for abdominal cramps 2. Benzodiazepine dependence * Patient reports daily use of chewing 4 mg and 8 mg Xanax daily * Decrease Ativan to 1.5 PO Q6 with PRN 1mg IV (2 doses over the past 24hrs), if patient requires a lot of when necessary doses but the Ativan back to 2 mg every 6 * Follow CIWA score, Do not stop the lorazepam abruptly, unless the patient leaves AMA. * Continue gabapentin from 200mg TID up to 300 mg TID 3. Alcohol dependence * Stable at this time. Currently on CIWA 4. Tobacco dependence * Continue nicotine patch 14 mg daily 5. Patient last basic metabolic panel showed some abnormality, we wanted to repeat the lab today but patient refused even after verifying the reasons behind redrawing labs Per psychiatry: #The patient has capacity to understand the treatment options, and verbalizes understanding. She may leave AMA. If she elects this option, please provide teaching and document her verbalization that she understands the risks of leaving AMA, including relapse on opiates or benzos, the possiblity of seizure and . #Please call on-call psychiatry through the Crisis office in case of any question Problem List: 1. Tobacco dependence 2. Benzodiazepine abuse 3. Opiate dependence Pain Ratin Pain Location: None Pain Goal: Pain 4 or less Pain Plan: Severe pain pathway Tomorrow's Labs & Rationales: Patient refused lab Consulting Request: Consulting Specialty: Psychiatry
[2017-01-01 14:59] VITALS: BP 98/70
--- NOTE | 2017-01-01 15:05 | PN- Att Addend ---
Attending MD Review Statement Attending Statement Attending MD Statement: examined this patient, discuss w/resident/PA/SUPERVISOR AIRCRAFT CLEANING, agreed w/resident/PA/SUPERVISOR AIRCRAFT CLEANING, reviewed EMR data (avail), discussed w/nursing Attending Assessment/Plan: Vital Signs Date Time Temp Pulse Resp B/P Pulse O2 O2 Flow FiO2 Ox Delivery Rate 01/01 1459 98.0 76 18 98/70 96 Room Air 01/01 0932 65 94/60 01/01 0641 98.6 65 20 94/60 98 12/31 2219 98.6 71 18 102/58 98 Patient seen and examined at bedside. She refused her blood work today. Patient complaining of some diaphoresis and other than that no other complaints. Patient was reluctant in telling me where she was getting her prescription for benzodiazepine. She told me that she's been getting benzodiazepine from her doctor for the last few years the same dose. [place] and found out that she 's been getting her benzodiazepines from a [facility] out of [place]. We will try to cut down her Ativan today to 1.5 mg every 6 hours and we will continue with when necessary Ativan as well in case she feels she is withdrawing. Will discuss with psychiatry tomorrow if it would be possible to taper her off the benzos slowly. Discussed with patient the care plan. Her blood pressure this morning was low 94/60 and her previous basic metabolic panel done on December 30 showed low sodium of 136 and her bicarbonate had gone up at that time to 32 from 26 and also her creatinine had gone up to 0.7 from 0.4. We wanted to repeat her basic electrolyte panel today but patient is refusing lab work. We'll try to get it again tomorrow. Encourage patient to drink more water.
[2017-01-01 22:36] VITALS: BP 100/60
[2017-01-02 06:00] VITALS: BP 104/68
[2017-01-02 06:39] VITALS: BP 104/68
--- NOTE | 2017-01-02 07:10 | PN- Housestaff ---
ROBERT MONTGOMERY,[facility] 01/02/17 0710: Subjective Follow-up For: opioid withdrawal benzodizepine withdrawal alcohol withdrawal Subjective: I saw and examined the patient at bedside today, she is sleeping in bed appears in no distress, wakes up and answers questions by shaking the head, reports chills and that she could not sleep well last night, she is annoyed by the noises around and wants the door closed. Review of Systems Constitutional: Reports: chills. Denies: fever. EENTM: Reports: no symptoms. Cardiovascular: Denies: chest pain, palpitations. Respiratory: Denies: cough, short of breath, sputum production. Gastrointestinal: Denies: abdominal pain, changes in stool. Genitourinary: Reports: no symptoms. Musculoskeletal: Reports: no symptoms. Skin: Reports: no symptoms. Neurological/Psychological: Reports: anxiety. Hematologic/Endocrine: Reports: no symptoms. Objective Last 24 Hrs of Vital Signs/I&O Vital Signs Date Time Temp Pulse Resp B/P Pulse O2 O2 Flow FiO2 Ox Delivery Rate 01/02 0639 98.0 65 20 104/68 97 Room Air 01/01 2236 98.4 81 18 100/60 100 Room Air 01/01 1459 98.0 76 18 98/70 96 Room Air 01/01 0932 65 94/60 Intake & Output 01/02 1600 01/02 0800 01/02 0000 Intake Total 900 Output Total Balance 900 Intake, Oral 900 Physical Exam General Appearance: Alert, Oriented X3, No Acute Distress Skin: No Significant Lesion HEENT: Atraumatic Neck: Supple Cardiovascular: Normal S1, Normal S2, No Murmurs Lungs: Normal Air Movement Abdomen: Soft, No Tenderness Neurological: Normal Speech, Normal Tone Extremities: No Edema Vascular: Normal Pulses Current Medications: Current Medications Sig/Eligio Start time Last Medication Dose Route Stop Time Status Admin Acetaminophen 650 MG Q6P PRN 12/29 1545 AC PO Baclofen 10 MG TID PRN 12/29 1830 AC PO Clonidine 0.1 MG TID PRN 12/29 1830 AC 01/01 PO 0932 Dicyclomine HCl 20 MG 4 TIMES/DAY PRN 12/29 1830 AC PO Enoxaparin Sodium 40 MG DAILY 12/30 1000 AC 12/30 SC 0935 Gabapentin 300 MG TID 12/30 1000 AC 01/01 PO 211 Lorazepam 1.5 MG Q6 01/01 1200 AC 01/02 PO 0635 Lorazepam 0 Q1P PRN 12/29 1830 AC 01/01 IV 1602 Lorazepam 2 MG Q6 12/29 1815 DC 01/01 PO 0559 Metoclopramide HCl 10 MG Q6P PRN 12/29 1830 AC IV Last 24 Hrs of Lab/Jimmy Results Last 24 Hrs of Labs/Mics: Laboratory Tests 01/01/17 1126: Sodium Cancelled, Potassium Cancelled, Chloride Cancelled, Carbon Dioxide Cancelled, Anion Gap Cancelled, BUN Cancelled, Creatinine Cancelled, BUN/ Creatinine Ratio Cancelled Assessment/Plan Assessment: Patient is a 36-year-old lady with a PMH of IV heroine abuse, daily benzodiazepine abuse, 1 PPD tobacco use who was referred to for medical detox prior to admission to [facility] substance abuse facility ([facility]). Patient had the option to fly to [place] for [facility] [place] over the weekend. Her parents also have been able to secure a bed in the '[facility]' program in [place]. Patient has refused them both. Per Psychiatry, the patient has capacity to understand the treatment options, and verbalizes understanding. She may leave AMA. If she elects this option, please provide teaching and document her verbalization that she understands the risks of leaving AMA, including relapse on opiates or benzos, the possibility of seizure and . Please call on-call psychiatry through the Crisis office in case of any question. Problem list and plan: Heroine withdrawal We started the patient on a rapid taper of methadone: 40/30/20/10 mg. she finished ther taper on 01/01/17. We also started her on Clonidine, Baclofen, Bentyl. * Continue Clonidine 0.1 mg TID PRN for cravings depression * Baclofen 10 mg TID for muscle cramps * Bentyl 20 mg PO QID PRN for abdominal cramps Benzodiazepine dependence Patient reports daily use of chewing 4 mg and 8 mg Xanax daily. She was put on Ativan per CIWA and scheduled Ativan. * Decreased Ativan further to 1 PO Q6 with PRN 1mg PO Q1h * Follow CIWA scores and do not stop the lorazepam abruptly, unless the patient leaves AMA. * Continue gabapentin from 200mg TID up to 300 mg TID * Added trazodone PRN for insomnia Alcohol dependence Currently on CIWA. * Continue with Ativan taper Tobacco dependence * Continue nicotine patch 21 mg daily Hyponatremia, elevated HCO3, elevated Cr Patient last basic metabolic panel showed abnormalities, patient refused repeat labs despite explaining to her the reasons behind redrawing labs. Diet - regular DVT px - SC lovenox FULL CODE Problem List: 1. Opiate dependence 2. Benzodiazepine abuse 3. Tobacco dependence Pain Ratin Pain Location: no pain Pain Goal: Pain 4 or less Pain Plan: tylenol for mild pain Tomorrow's Labs & Rationales: none Consulting Request: Consulting Specialty: Psychiatry SUKHJINDER LATHAM MD 01/02/17 2106: Attending MD Review Statement Attending Statement Attending MD Statement: examined this patient, discuss w/resident/PA/SIFTER AND MILLER, agreed w/resident/PA/SIFTER AND MILLER, reviewed EMR data (avail), discussed with nursing, discussed with case mgmt, amended to note Attending Assessment/Plan: The patient was seen and discussed with resident. Agree with the plan of care as oultined. Appreciate psychiatry and case management input.
[2017-01-02 14:56] VITALS: BP 116/70
--- NOTE | 2017-01-02 16:54 | PN- Psychiatry ---
Assessment/Plan Impression: The patient agreed to speak with the associate sales representative from [facility] [place] today, and gacve written permission to speak with her mother about this plan. The mother has been willing to pay for a rehab admission at [facility], but they are unable to take her while she remains on benzodiazepines. We had hoped that the patient and her mother might agree to a transfer to the [place] facility, which would include a 10 day medically-supervised benzo detox and 45 day rehab stay, but the patient and her mother have not been able to arrive at a decision. [facility] has apparently offered a discount comparable to, or less, than the offer made to the mother by [facility]. The patient came to our hospital on heroin, 50 bags IV daily, and has finished her methadone taper. She continues on medications to relieve her symptoms of withdrawal. She also had been using alprazolam 8 mg PO daily, denies supplementing this, and took only as ordered, per her report. This is equivalent to approximately lorazepam 16 mg daily. She is currently on lorazepam 1.5 mg PO every 6 hours, and will soon be on 1 mg PO every 6 hours later today. This should be tapered slowly to avoid treatment failure at the receiving facility. Please ask case management to ask for additional inpatient days, if necessary. Suggestion: 1. Please continue to support the patient's opiate withdrawal with the symptomatic relief as described in the Opiate Detox Protocol (Draft). 2. Please continue to taper the patient off lorazepam safely; 20% daily reduction in total dosing, maximum. 3. Plan to transfer the patient to either [facility] or [facility] when the benzo taper is complete. We will continue to follow. Giovanni Cardozo APRN, Pager [phone] Subjective Subjective: Patient seen today, 01/02/17, at 1400, in room 204-1. She is alert, oriented, sitting calmly on her bed. She is more willing to engage in conversation today. Denies SI/HI. Denies AVH, and presents no victorino delusions. Objective Last 24 Hrs of Vital Signs/I&O Vital Signs Date Time Temp Pulse Resp B/P Pulse O2 O2 Flow FiO2 Ox Delivery Rate 01/02 1456 97.6 90 18 116/70 96 Room Air 01/02 0859 65 104/68 01/02 0639 98.0 65 20 104/68 97 Room Air 01/02 0600 98.0 65 20 104/68 01/01 2236 98.4 81 18 100/60 100 Room Air Intake & Output 01/02 1600 01/02 0800 01/02 0000 Intake Total 600 100 900 Output Total Balance 600 100 900 Intake, IV 0 Intake, Oral 600 100 900 Number 1 0 Bowel Movements Patient 130 lb Weight Current Medications: Current Medications Sig/Eligio Start time Last Medication Dose Route Stop Time Status Admin Acetaminophen 650 MG Q6P PRN 12/29 1545 AC PO Baclofen 10 MG TID PRN 12/29 1830 AC PO Clonidine 0.1 MG TID PRN 12/29 1830 AC 01/02 PO 0859 Dicyclomine HCl 20 MG 4 TIMES/DAY PRN 12/29 1830 AC PO Enoxaparin Sodium 40 MG DAILY 12/30 1000 AC 12/30 SC 0935 Gabapentin 300 MG TID 12/30 1000 AC 01/02 PO 1622 Lorazepam 1 MG Q6 01/02 1800 AC 01/02 PO 1819 Lorazepam 1 MG Q1 PRN 01/02 1315 AC 01/02 PO 1628 Lorazepam 1.5 MG Q6 01/01 1200 DC 01/02 PO 1143 Lorazepam 0 Q1P PRN 12/29 1830 DC 01/02 IV 1251 Metoclopramide HCl 10 MG Q6P PRN 12/29 1830 AC IV Nicotine 14 MG DAILY 01/02 1408 01/02 TOP 1622 Patient Medication 1 ED .STK-MED ONE 01/02 1407 NH Teaching ED 01/02 1408
[2017-01-02 21:53] VITALS: BP 124/84
[2017-01-03 07:05] VITALS: BP 103/62
--- NOTE | 2017-01-03 07:26 | PN- Housestaff ---
JORGITO KHAN 01/03/17 0726: Subjective Follow-up For: opioid withdrawal benzodizepine withdrawal Anxiety Complaints: insomnia Subjective: Interval history: This morning the patient states that she feels slightly better but reports inability to fall asleep. She denies any headache, visual/auditory hallucination, nausea, abdominal pain, diarrhea, muscle aches, fevers or chills. Patient does report that she is interested in going to [place] for rehabilitation after discharge. Review of Systems Constitutional: Reports: see HPI. EENTM: Reports: no symptoms. Cardiovascular: Reports: no symptoms. Respiratory: Reports: no symptoms. Gastrointestinal: Reports: no symptoms. Genitourinary: Reports: no symptoms. Musculoskeletal: Reports: see HPI. Neurological/Psychological: Reports: see HPI. Objective Last 24 Hrs of Vital Signs/I&O Vital Signs Date Time Temp Pulse Resp B/P Pulse O2 O2 Flow FiO2 Ox Delivery Rate 01/03 1425 97.7 85 20 110/68 96 Room Air 01/03 0705 97.8 84 18 103/62 97 Room Air 01/02 2153 97.8 75 18 124/84 98 Intake & Output 01/03 1600 01/03 0800 01/03 0000 Intake Total 300 300 Output Total Balance 300 300 Intake, Oral 300 300 Physical Exam General Appearance: Alert, Cooperative, No Acute Distress Skin: No Breakdown HEENT: EOMI, Mucous Membr. moist/pink Cardiovascular: Regular Rate, Normal S1, Normal S2 Lungs: Clear to Auscultation, Normal Air Movement Abdomen: Normal Bowel Sounds, Soft, No Tenderness Neurological: Normal Speech, Strength at 5/5 X4 Ext Extremities: No Edema, Normal Pulses Vascular: Pulses Symmetrical Current Medications: Current Medications Sig/Eligio Start time Last Medication Dose Route Stop Time Status Admin Acetaminophen 650 MG Q6P PRN 12/29 1545 AC PO Baclofen 10 MG TID PRN 12/29 1830 AC PO Clonidine 0.1 MG TID PRN 12/29 1830 AC 01/03 PO 1213 Dicyclomine HCl 20 MG 4 TIMES/DAY PRN 12/29 1830 AC PO Enoxaparin Sodium 40 MG DAILY 12/30 1000 AC 12/30 SC 0935 Gabapentin 400 MG TID 01/03 1000 AC 01/03 PO 0905 Gabapentin 300 MG TID 12/30 1000 DC 01/02 PO 2116 Lorazepam 1 MG Q8 01/03 1400 AC 01/03 PO 1412 Lorazepam 1 MG Q6 01/02 1800 DC 01/03 PO 0629 Lorazepam 1 MG Q1 PRN 01/02 1315 AC 01/03 PO 1213 Melatonin 5 MG ONCE ONE 01/03 0015 DC PO 01/03 0016 Metoclopramide HCl 10 MG Q6P PRN 12/29 1830 AC IV Nicotine 21 MG DAILY 01/03 1000 DC TOP Nicotine 21 MG DAILY 01/02 2200 AC 01/02 TOP 2338 Nicotine 14 MG DAILY 01/02 1408 DC 01/02 TOP 1622 Trazodone HCl 100 MG ONCE ONE 01/03 2100 AC PO 01/03 2101 Trazodone HCl 25 MG AT BEDTIME 01/02 2200 DC PO Trazodone HCl 25 MG AT BEDTIME PRN 01/02 2045 AC 01/02 PO 2115 Assessment/Plan Assessment: Patient is a 36-year-old lady with a PMH of IV heroine abuse, daily benzodiazepine abuse, 1 PPD tobacco use who was referred to for medical detox prior to admission to retirement substance abuse facility ([facility]). Patient had the option to fly to [place] for [facility] [place] over the weekend. Her parents also have been able to secure a bed in the '[facility]' program in [place]. Patient has refused them both. Per Psychiatry, the patient has capacity to understand the treatment options, and verbalizes understanding. She may leave AMA. If she elects this option, please provide teaching and document her verbalization that she understands the risks of leaving AMA, including relapse on opiates or benzos, the possibility of seizure and . Please call on-call psychiatry through the Crisis office in case of any question. Problem list and plan: Heroine withdrawal We started the patient on a rapid taper of methadone: 40/30/20/10 mg. she finished ther taper on 01/01/17. She has since been continued on Clonidine, Baclofen, Bentyl. * Continue Clonidine 0.1 mg TID PRN for cravings depression * Baclofen 10 mg TID for muscle cramps * Bentyl 20 mg PO QID PRN for abdominal cramps Benzodiazepine dependence Patient reports daily use of 4 mg to 8 mg Xanax daily. She was put on Ativan per KAVYA and scheduled Ativan. * Decreased Ativan further to 1 PO Q8 with PRN 1mg PO Q1h * Follow CIWA scores and do not stop the lorazepam abruptly, unless the patient leaves AMA. * Increased gabapentin to 400 mg Tobacco dependence * Continue nicotine patch 21 mg daily Insomnia * Trial of trazodone 50 mg last night with no success * We'll give her trazodone 100 mg at 9 PM tonight Diet - regular DVT px - SC lovenox FULL CODE Incr gabapentin from 300 mg to 400 mg 3 times a day Ativan from 1 mg every 6-1 mg every 8 Problem List: 1. Opiate dependence 2. Benzodiazepine abuse 3. Tobacco dependence Pain Ratin Pain Location: NA Pain Goal: Pain 4 or less Pain Plan: NA Tomorrow's Labs & Rationales: None required DVT/Prophylaxis: mechanical Consulting Request: Consulting Specialty: Psychiatry Discharge Plan Discharge Disposition: home Stable for Discharge? No Anticipated Discharge (Day): tomorrow SUKHJINDER LATHAM MD 01/03/17 1249: Attending MD Review Statement Attending Statement Attending MD Statement: examined this patient, discuss w/resident/PA/TALENT DEVELOPMENT CONSULTANT, agreed w/resident/PA/TALENT DEVELOPMENT CONSULTANT, reviewed EMR data (avail), discussed with nursing, amended to note Attending Assessment/Plan: The patient was seen and discussed with house staff. Agree with the plan of care. The patient is considering going to [place] for rehab.
[2017-01-03 14:25] VITALS: BP 110/68
[2017-01-03 23:10] VITALS: BP 98/60
--- NOTE | 2017-01-04 05:11 | PN- Housestaff ---
ALEX MONTGOMERY,[facility] 01/04/17 0511: Subjective Follow-up For: Opiate withdrawal Benzodiazepine withdrawal Anxiety Subjective: Patient seen and examined. She is seen lying flat in bed resting comfortably. She appears to be in no acute distress. She reports sleeping well last night and is requesting to leave. She reportedly intends to follow up with '[facility] rehabilitation program in [place] after discharge. She states that she is "leaving one way or another" today. Additionally she denies any headache, fever, chills, chest pain, palpitations, shortness of breath, nausea, vomiting, diarrhea. No overnight events reported. Review of Systems Constitutional: Reports: see HPI. Objective Last 24 Hrs of Vital Signs/I&O Vital Signs Date Time Temp Pulse Resp B/P Pulse O2 O2 Flow FiO2 Ox Delivery Rate 01/04 0715 98.3 71 18 93/59 96 Room Air 01/03 2310 98.2 86 18 98/60 98 Room Air Intake & Output 01/04 1600 01/04 0800 01/04 0000 Intake Total 600 300 Output Total Balance 600 300 Intake, Oral 600 300 Physical Exam General Appearance: Alert, Oriented X3, Cooperative, No Acute Distress Other Physical Findings: General - well developed, well nourished young woman in no acute distress HEENT - NCAT, PERRL, EOMI, anicteric CVS- S1, S2 w/o m/g/r Resp- CTA bilaterally GI - Soft, nontender, nondistended, bowel sounds intact Neuro - Awake and alert, CN II - XII grossly intact Ext - normal pulses, no cyanosis/clubbing/edema Current Medications: Current Medications Sig/Eligio Start time Last Medication Dose Route Stop Time Status Admin Acetaminophen 650 MG Q6P PRN 12/29 1545 DCD PO Baclofen 10 MG TID PRN 12/29 1830 DCD PO Clonidine 0.1 MG TID PRN 12/29 1830 DCD 01/03 PO 1213 Dicyclomine HCl 20 MG 4 TIMES/DAY PRN 12/29 1830 DCD PO Enoxaparin Sodium 40 MG DAILY 12/30 1000 DCD 12/30 SC 0935 Gabapentin 400 MG TID 01/03 1000 DCD 01/04 PO 0918 Lorazepam 1 MG Q8 01/03 1400 DCD 01/04 PO 1427 Lorazepam 1 MG Q1 PRN 01/02 1315 DCD 01/04 PO 1148 Metoclopramide HCl 10 MG Q6P PRN 12/29 1830 DCD IV Nicotine 21 MG DAILY 01/02 2200 DCD 01/03 TOP 2121 Patient Medication 1 ED .STK-MED ONE 01/04 1349 DC Teaching ED 01/04 1350 Trazodone HCl 100 MG ONCE ONE 01/03 2100 DC 01/03 PO 01/03 2101 2121 Trazodone HCl 25 MG AT BEDTIME PRN 01/02 2045 DCD 01/02 PO 2116 Assessment/Plan Assessment: Patient is to report to rehabiliation for polysubstance/benzodiazepine abuse after discharge. She has an appointment to attend the '[facility]' rehabilitation program after flying there on Monday. She was highly encouraged to report directly to the airport from the hospital, however declined stating that she wanted to "spend time with her kids" and get her "last paycheck". She was provided with a short taper prescription of ativan and instructed to follow up with her appointment and to avoid further use of illicit substances. Benzodiazepine dependence Patient reports daily use of 4 mg to 8 mg Xanax daily. She was put on Ativan per CIWA and scheduled Ativan. -General Medicine -CIWA -Ativan 1mg PO Q8H -Ativan 1mg PO PRN-agitation -Gabapentin 300mg PO TID -Psychiatry consult Heroine withdrawal We started the patient on a rapid taper of methadone: 40/30/20/10 mg. she finished ther taper on 01/01/17. She has since been continued on Clonidine, Baclofen, Bentyl. -Continue Clonidine 0.1 mg TID PRN for cravings depression -Baclofen 10 mg TID for muscle cramps -Bentyl 20 mg PO QID PRN for abdominal cramps Tobacco dependence- Nicotine patch 21 mg daily Pain Plan - Acetaminophen Diet - regular DVT PPx - SC lovenox Code Status - FULL CODE Problem List: 1. Benzodiazepine abuse Pain Ratin Pain Location: None Pain Goal: Remain pain free Pain Plan: As noted in plan Tomorrow's Labs & Rationales: None Consulting Request: Consulting Specialty: Psychiatry SUKHJINDER LATHAM MD 01/04/17 1341: Attending MD Review Statement Attending Statement Attending MD Statement: examined this patient, discuss w/resident/PA/TANK PROCESSOR, agreed w/resident/PA/TANK PROCESSOR, reviewed EMR data (avail), discussed with nursing, discussed with case mgmt, amended to note Attending Assessment/Plan: The patient was seen and discussed with house staff, psychiatry and case management. Original plan was to transfer to detox facility in [place] directly, however patient insists on going home for a few days. We have not contacted her PCP who was prescribing her Xanax (patient requested that he not be contacted). Concern that she may begin using again prior to admission to [place] detox. Will discharge on Gabapentin and with quick taper course of Ativan.
[2017-01-04 07:15] VITALS: BP 93/59
--- NOTE | 2017-01-04 13:39 | Patient Discharge Instructions ---
Discharge Instructions General Discharge Information Special Instructions: Take your ativan taper as instructed. Take gabapentin as directed. Report to your rehabilation program [facility] in [facility] as soon as possible. WE HIGHLY RECOMMEND YOU DO THIS DIRECTLY FROM THE HOSPITAL. Acute Coronary Syndrome Inclusion Criteria At DC or during hospital stay patient has or had the following: ACS DIAGNOSIS No Discharge Core Measures Meds if any: Prescribed or Continued at Discharge Meds if any: NOT Prescribed or Continued at Discharge Congestive Heart Failure Inclusion Criteria At DC or during hospital stay patient has or had the following: CHF DIAGNOSIS No Discharge Core Measures Meds if any: Prescribed or Continued at Discharge Meds if any: NOT Prescribed or Continued at Discharge Cerebrovascular accident Inclusion Criteria At DC or during hospital stay patient has or had the following: CVA/TIA Diagnosis No Discharge Core Measures Meds if any: Prescribed or Continued at Discharge Meds if any: NOT Prescribed or Continued at Discharge Venous thromboembolism Inclusion Criteria VTE Diagnosis No VTE Type NONE VTE Confirmed by (Test) NONE Discharge Core Measures - Per Current guidelines, there needs to be overlap - treatment for the first 5 days of Warfarin therapy. - If discharged on Warfarin prior to 5 days of - overlap therapy, the patient will need to be - assessed for post discharge needs including - *Post discharge parental anticoagulation - *Warfarin and/or parental anticoagulation education - *Follow up date to check INR post discharge At least 5 days overlap therapy as Inpatient No Meds if any: Prescribed or Continued at Discharge Note: Overlap Therapy is Warfarin and Anticoagulant Meds if any: NOT Prescribed or Continued at Discharge
[2017-01-04] MEDS ORDERED: GABAPENTIN400 M2 PO ×2 (13:48→14:05)
[2017-01-04] MEDS ORDERED: ATIVAN1 M1 PO ×2 (13:48→14:05)
--- NOTE | 2017-01-08 18:35 | Discharge Summary ---
Visit Information Visit Dates Admission Date: 12/29/16 Discharge Date: 01/04/17 Hospital Course Course Attending Physician: SUKHJINDER LATHAM MD Primary Care Physician: PATIENT HAS NO PRIMARY CARE DR Consulting Request: Consulting Specialty: Psychiatry Hospital Course: 36 year old woman with significant past medical history of IVDU, and benzodiazepine dependence brought to the [facility] for benzodiazepine and opiate detox. Collateral information on admission reveals that patient recently established a detox program at [facility] but was unable to attend due to bed unavailability. Patient complained of generalized body aches with intermittent subjective fever/chills. ED Course: -Vitals: Temp 96.6-98.2, HR 74-101, RR 17-20, BP 90-123/57-68, O2 96-98% on Room Air -Significant Labs: WBC 10.0, Hgb/Hct 13.2/38.4, Utox: Opiates >4,000, Benzodiazepine >800, Cocaine 283, Cannabis 12.40 -Interventions: Methadone 40mg PO, Atarax 25mg, Clonidine 0.1mg PO x2 Opioid & Benzodiazepine Dependence/Withdrawal Patient was admitted to the genreal medicine floor for treatment of polysubstance abuse and dependence. Collateral information reveals that patient uses 8 bags of heroine and 8mg of alprazolam per day and is at high risk for withdrawal. -General Medicine -CIWA with Ativan PRN -Rapid Methadone taper -Benzodiazepine Taper -Gabapentin 300mg PO TID -Clonidine 0.1mg PO TID -NSAID for pain -Psych consult Discharge: Patient was discharge after patient established care with a detox facility in [place]. Patient reported will not be traveling to the facility until the following Monday, despite being discharged on Monday. Patient was highly encouraged to report directly to the facility as to avoid relapsing on treatment plan. Patient stated she would be under the care of her parents until then. She was provided a short prescription to finish her Ativan taper. Allergies: Coded Allergies: No Known Allergies (12/28/16) Disposition Summary Disposition Principal Diagnosis: Benzodiazepine Dependence/Withdrawal Additional Diagnosis: Opiate Dependence/Withdrawal Discharge Disposition: home or self care Discharge Instructions General Discharge Information Code Status: Full Code Patient's Diet: Regular Diet Patient's Activity: Return to full activity as tolerated Follow-Up Instructions/Appts: Report to your detox facility in [place] as soon as possible for further care. Continue your Ativan taper as directed, do not abruptly stop this medication. Medications at Discharge Discharge Medications: Stop taking the following medications: Alprazolam (Alprazolam) 2 MG TABLET ORAL 4XDAILY Qty = 120 Start taking the following new medications: Gabapentin (Gabapentin) 400 MG CAPSULE 400 Milligram ORAL THREE TIMES DAILY Qty = 21 No Refills Comments: Last Taken: 01/04/17 Time: 0920 AM Lorazepam (Ativan) 1 MG TABLET 1 Tablet ORAL TAPER Qty = 8 No Refills Instructions: Take one tablet by mouth twice a day (01/05-01/06) Take one tablet by mouth once a day (01/07-01/08) Take one tablet extra as needed (two extra pills provided) up to once a day for increased symptoms of anxiety/ agitation Comments: Last Taken: 01/04/17 Time: 2:25 PM Copies To: KEN KENNY APRN Attending MD Review Statement Documenting Attending: SUKHJINDER LATHAM MD Other Findings: The patient was seen and agree with the plan of care upon discharge. Patient refused to go directly to rehab and plans on being home for a few days.
== END 2017-01-04 14:42 | DRG 773 ==
LOC: ENRESERVDT → ENRESERVTM → ERH 20:18 → ERHI 12-29 00:45 → 2NB 12-29 14:12 → ERHI 12-29 14:12 → EDBEDREQTM 12-29 14:32 → EDBEDREQ 12-29 14:32 → ERHI 12-29 14:56 → EDBEDREQ 12-29 17:58 → CANBEDREQ 12-29 18:34 → ERHI 12-29 18:38 → 2NB 12-29 19:38
PROVIDERS: Internal Medicine; ADMIT Emergency Medicine
DX: F11.23 Opioid dependence with withdrawal (principal); F19.239 Other psychoactive substance dependence with withdrawal, unspecified; F17.210 Nicotine dependence, cigarettes, uncomplicated; F10.20 Alcohol dependence, uncomplicated; Y90.0 Blood alcohol level of less than 20 mg/100 ml; E87.1 Hypo-osmolality and hyponatremia
CPT/HCPCS: 2NBSP; 80307; 82436; 99232; G0480; J1650; J2765